=== PATIENT | male | born 1995 | race African-American/Black ===

== ENCOUNTER 2017-12-09 02:34 | Inpatient (IN) | payer OTHER ==
[~2017-12-09] VITALS: Ht 167.6 cm; Wt 57.9 kg
[2017-12-09 02:48] VITALS: BP 149/76; PULSE 81; RESP 18; O2SAT 100
[2017-12-09] MEDS ORDERED: HALOPERIDOL LACTATE 5 MG/ML AMP IM ONE (03:15)
[2017-12-09] MEDS ORDERED: LORazepam 2 MG/ML VIAL IM ONE (03:15)
--- NOTE | 2017-12-09 03:25 | PD ---
HPI Chief Complaint: Psychiatric Symptoms Time Seen by Provider: 03:04 Travel History International Travel<30 days: No Contact w/Intl Traveler<30days: No Traveled to known affect area: No History of Present Illness HPI 22-year-old black male presents emergency department under Stewart act by PD. Patient's mother had called police advising them that he has become increasingly [id number] and has been acting bizarre. Patient was placed under Stewart act to ensure his safety. The patient here is speaking incoherently. He is requesting marijuana and K2. He is uncooperative. He initially had attempted to elope when he was being brought in by PD for evaluation. Patient was placed in violent restraints to ensure his safety. Patient was medicated with Haldol 5 mg and Ativan 2 mg IM. There is no meaningful history through the patient. I have had a discussion with the patient's mother. She states that he had a similar episode back in 2014 when he was smoking marijuana and possibly K2. She states he became sober and then became a productive citizen going to school. Just recently the patient started to do marijuana and drugs again. He was arrested for having a concealed handgun. During his incarceration he has also ordered an officer and was placed in confinement. He is currently out on bail. [facility] Past Medical History Narrative Medical Substance-induced Tetanus Vaccination: < 5 Years ?: Not Past Surgical History Surgical History: No Previous Surgery Social History Alcohol Use: Yes Tobacco Use: Yes Substance Use: Yes (OCCASIONALLY PER FATHER) Allergies-Medications (Allergen,Severity, Reaction): Coded Allergies: No Known Allergies (Unverified , 01/18/15) Reported Meds & Prescriptions Reported Meds & Active Scripts Active No Active Prescriptions or Reported Medications Review of Systems ROS Limitations: Psychotic Physical Exam Narrative GENERAL: Well-nourished, well-developed patient. SKIN: Warm and dry. HEAD: Normocephalic and atraumatic. EYES: No scleral icterus. No injection or drainage. ENT: No nasal drainage noted. Mucous membranes pink. Airway patent. NECK: Supple, trachea midline. Moves head freely without obvious discomfort. CARDIOVASCULAR: Regular rate and rhythm without murmurs, gallops, or rubs. RESPIRATORY: Breath sounds equal bilaterally. No accessory muscle use. GASTROINTESTINAL: Abdomen soft, non-tender, nondistended. EXTREMITIES: No cyanosis or edema. BACK: Nontender without obvious deformity. No CVA tenderness. NEURO: Patient is alert and oriented. no sensorimotor deficits. Nonfocal. Normal speech. PSYCH: Patient is acutely psychotic and not making sense. Data Data Last Documented VS Vital Signs Date Time Temp Pulse Resp B/P (MAP) Pulse Ox O2 Delivery O2 Flow Rate FiO2 12/09/17 04:22 98.2 12/09/17 02:51 81 12/09/17 02:48 18 149/76 (100) 100 Orders Orders Complete Blood Count With Diff (12/09/17 03:04) Comprehensive Metabolic Panel (12/09/17 03:04) Thyroid Stimulating Hormone (12/09/17 03:04) Psych Screen (12/09/17 03:04) Haloperidol Inj (Haldol Inj) (12/09/17 03:15) Lorazepam Inj (Ativan Inj) (12/09/17 03:15) Restraints Violent (12/09/17 03:04) Drug Screen, Random Urine (12/09/17 03:04) Alcohol (Ethanol) (12/09/17 03:04) Salicylates (Aspirin) (12/09/17 03:04) Tylenol (Acetaminophen) (12/09/17 03:04) Labs Laboratory Tests Test 12/09/17 03:13 White Blood Count 5.0 TH/MM3 Red Blood Count 4.07 MIL/MM3 Hemoglobin 13.1 GM/DL Hematocrit 38.4 % Mean Corpuscular Volume 94.3 FL Mean Corpuscular Hemoglobin 32.3 PG Mean Corpuscular Hemoglobin Concent 34.3 % Red Cell Distribution Width 13.4 % Platelet Count 198 TH/MM3 Mean Platelet Volume 9.5 FL Neutrophils (%) (Auto) 38.3 % Lymphocytes (%) (Auto) 45.4 % Monocytes (%) (Auto) 9.7 % Eosinophils (%) (Auto) 5.8 % Basophils (%) (Auto) 0.8 % Neutrophils # (Auto) 1.9 TH/MM3 Lymphocytes # (Auto) 2.3 TH/MM3 Monocytes # (Auto) 0.5 TH/MM3 Eosinophils # (Auto) 0.3 TH/MM3 Basophils # (Auto) 0.0 TH/MM3 CBC Comment DIFF FINAL Differential Comment Blood Urea Nitrogen 17 MG/DL Creatinine 1.02 MG/DL Random Glucose 86 MG/DL Total Protein 7.1 GM/DL Albumin 3.7 GM/DL Calcium Level 8.2 MG/DL Alkaline Phosphatase 65 U/L Aspartate Amino Transf (AST/SGOT) 20 U/L Alanine Aminotransferase (ALT/SGPT) 18 U/L Total Bilirubin 0.3 MG/DL Sodium Level 143 MEQ/L Potassium Level 3.4 MEQ/L Chloride Level 106 MEQ/L Carbon Dioxide Level 28.0 MEQ/L Anion Gap 9 MEQ/L Estimat Glomerular Filtration Rate 112 ML/MIN Thyroid Stimulating Hormone 3rd Gen 2.440 uIU/ML Salicylates Level LESS THAN 1.7 MG/DL Urine Opiates Screen NEG Acetaminophen Level LESS THAN 2.0 MCG/ML Urine Barbiturates Screen NEG Urine Amphetamines Screen NEG Urine Benzodiazepines Screen NEG Urine Cocaine Screen NEG Urine Cannabinoids Screen POS Ethyl Alcohol Level LESS THAN 3 MG/DL MDM Medical Decision Making Medical Screen Exam Complete: Yes Emergency Medical Condition: Yes Medical Record Reviewed: Yes Interpretation(s) Laboratory Tests Test 12/09/17 03:13 White Blood Count 5.0 TH/MM3 Red Blood Count 4.07 MIL/MM3 Hemoglobin 13.1 GM/DL Hematocrit 38.4 % Mean Corpuscular Volume 94.3 FL Mean Corpuscular Hemoglobin 32.3 PG Mean Corpuscular Hemoglobin Concent 34.3 % Red Cell Distribution Width 13.4 % Platelet Count 198 TH/MM3 Mean Platelet Volume 9.5 FL Neutrophils (%) (Auto) 38.3 % Lymphocytes (%) (Auto) 45.4 % Monocytes (%) (Auto) 9.7 % Eosinophils (%) (Auto) 5.8 % Basophils (%) (Auto) 0.8 % Neutrophils # (Auto) 1.9 TH/MM3 Lymphocytes # (Auto) 2.3 TH/MM3 Monocytes # (Auto) 0.5 TH/MM3 Eosinophils # (Auto) 0.3 TH/MM3 Basophils # (Auto) 0.0 TH/MM3 CBC Comment DIFF FINAL Differential Comment Blood Urea Nitrogen 17 MG/DL Creatinine 1.02 MG/DL Random Glucose 86 MG/DL Total Protein 7.1 GM/DL Albumin 3.7 GM/DL Calcium Level 8.2 MG/DL Alkaline Phosphatase 65 U/L Aspartate Amino Transf (AST/SGOT) 20 U/L Alanine Aminotransferase (ALT/SGPT) 18 U/L Total Bilirubin 0.3 MG/DL Sodium Level 143 MEQ/L Potassium Level 3.4 MEQ/L Chloride Level 106 MEQ/L Carbon Dioxide Level 28.0 MEQ/L Anion Gap 9 MEQ/L Estimat Glomerular Filtration Rate 112 ML/MIN Thyroid Stimulating Hormone 3rd Gen 2.440 uIU/ML Salicylates Level LESS THAN 1.7 MG/DL Urine Opiates Screen NEG Acetaminophen Level LESS THAN 2.0 MCG/ML Urine Barbiturates Screen NEG Urine Amphetamines Screen NEG Urine Benzodiazepines Screen NEG Urine Cocaine Screen NEG Urine Cannabinoids Screen POS Ethyl Alcohol Level LESS THAN 3 MG/DL Differential Diagnosis MDM: High Differential diagnoses: Schizophrenia, schizoaffective disorder, bipolar, anxiety, depression, adjustment reaction, mood disorder NOS, ODD, depressive disorder NOS, dementia, dementia with agitation, psychosis NOS, substance induced mood disorder, infection,electrolyte abnormality, malingering. Narrative Course Mental health screening discussed with the patient. Psychiatric screen ordered. The patient has been medically cleared. The patient is taken out of restraints per protocol. Diagnosis Primary Impression: Medical clearance for psychiatric admission Scripts No Active Prescriptions or Reported Meds Condition: Stable Varun Colon December 09, 2017 03:25
[2017-12-09 03:33] LABS: AUTOMATED NEUTROPHIL # 1.9 TH/MM3 (1.8-7.7); BASOPHIL % 0.8 % (0.0-2.0); EOSINOPHIL # 0.3 TH/MM3 (0-0.4); EOSINOPHIL % 5.8 % (0.0-4.0); HEMATOCRIT 38.4 % (39.0-51.0); HEMOGLOBIN 13.1 GM/DL (13.0-17.0); LYMPH % 45.4 % (9.0-44.0); LYMPHOCYTE # 2.3 TH/MM3 (1.0-4.8); MEAN CELL VOLUME 94.3 FL (80.0-100.0); MEAN CORPUSCULAR HEMOGLOBIN 32.3 PG (27.0-34.0); MEAN CORPUSCULAR HGB CONC 34.3 % (32.0-36.0); MEAN PLATELET VOLUME 9.5 FL (7.0-11.0); MONO % 9.7 % (0.0-8.0); MONOCYTE # 0.5 TH/MM3 (0-0.9); NEUT % 38.3 % (16.0-70.0); PLATELET COUNT 198 TH/MM3 (150-450); RED BLOOD COUNT 4.07 MIL/MM3 (4.50-5.90); RED CELL DISTRIBUTION WIDTH 13.4 % (11.6-17.2)
[2017-12-09 03:51] LABS: ALBUMIN 3.7 GM/DL (3.4-5.0); ALT (GPT) 18 U/L (12-78); AST (GOT) 20 U/L (15-37); BLOOD UREA NITROGEN 17 MG/DL (7-18); CALCIUM 8.2 MG/DL (8.5-10.1); CHLORIDE 106 MEQ/L (98-107); CREATININE 1.02 MG/DL (0.60-1.30); GLOMERULAR FILTRATION RATE 112 ML/MIN (>89); GLUCOSE,RANDOM 86 MG/DL (74-106); SODIUM (NA) 143 MEQ/L (136-145)
[2017-12-09 04:01] LABS: ALKALINE PHOSPHATASE 65 U/L (45-117); TOTAL BILIRUBIN ADULT 0.3 MG/DL (0.2-1.0); TOTAL PROTEIN 7.1 GM/DL (6.4-8.2)
[2017-12-09 04:07] LABS: ACETAMINOPHEN LESS THAN 2.0 MCG/ML (10.0-30.0)
[2017-12-09 04:22] VITALS: TEMP 98.2
[2017-12-09 04:52] VITALS: BP 134/68; PULSE 58; RESP 13; TEMP 97.7; O2SAT 99
--- NOTE | 2017-12-09 11:21 | PD ---
History of Present Illness Chief Complaint: Psychiatric Symptoms Time Seen by Provider: 11:20 Travel History International Travel<30 Days: No Contact w/Intl Traveler<30days: No Known affected area: No Legal Status Legal Status: Stewart Act Stewart Act Signed By: Marcelo Laird History of Present Illness: History of Present Illness HPI 22-year-old black, single male with previous history of unspecified psychosis who presents emergency department under Stewart act by PD. Patient's mother had called police advising them that he has become increasingly [id number] and has been acting bizarre. Upon arrival to the ED the patient is described as" speaking incoherently. He is requesting marijuana and K2. He is uncooperative. He initially had attempted to elope when he was being brought in by PD for evaluation. Patient was placed in violent restraints to ensure his safety. Patient was medicated with Haldol 5 mg and Ativan 2 mg IM." There is no meaningful history through the patient. Patient is seen in Main ED. He is asleep, arousable with verbal intervention. Sitter is at bedside. The patient is vague with his answers. He is oddly related. Appears internally preoccupied although he denies hallucinations. He states he is here "because my parents called the police." He denies that he has used any substances except marijuana. I contacted his mother at [phone]. The mother tells me that the patient has not been acting like himself for the past 5 days. He has not been sleeping, has been walking in the street as well as walking in traffic, has been irritable , when he is around people he is afraid of people getting too close to him and touching him. She also reports that he cut his hair after he had been growing out his dreads and then he shaved his head. The family was concerned about his change in behavior and had him seen by a neurologist on Saturday who completed a CT scan with no positive findings. The mother does state that he was visited by a friend and they were smoking marijuana. The mother is concerned that due to his behavior he will be hurt by someone or that he may hurt someone else who gets close to him on accident while he is out of the home. It appears that the patient after he was seen here in 2014 he was followed up for several months at [facility] and was taken medication but that he stopped the medicine after several months. [facility] Past Medical History Tetanus Vaccination: < 5 Years ?: Not Past Surgical History Surgical History: No Previous Surgery Psychiatric History Psychiatric History Hx Psychiatric Treatment: 1 previous Stewart act in 2014. He was sent to [place]. Received treatment at [facility]. Currently not under psychiatric treatment. History of Inpatient Treatment: Yes Guns or firearms in home: No Social History Single, unemployed, living with parents. For possession of a gun as well as possession of marijuana. He was recently released from care home. Hx Alcohol Use: Yes Hx Tobacco Use: Yes Hx Substance Use: Yes (OCCASIONALLY PER FATHER) Substance Use Type: Marijuana Other Substances Used: Possibly K2 Hx of Substance Use Treatment: No Family Psychiatric History Negative Allergies-Medications (Allergen,Severity, Reaction): Coded Allergies: No Known Allergies (Unverified , 01/18/15) Reported Meds & Prescriptions Reported Meds & Active Scripts Active No Active Prescriptions or Reported Medications Review of Systems ROS Limitations: Uncooperative Mental Status Examination Appearance: Appropriate Consciousness: Alert Orientation: x4 Motor Activity: Normal gait Speech: Hesitant, Slow Language: Adequate Fund of Knowledge: Adequate Attention and Concentration: Inadequate Memory: Unremarkable (Poor historian) Mood: Appropriate Affect: Blunt Thought Process & Associations: Other (Diminished) Thought Content: Bizarre thinking (Believes people are trying to get close to him for unknown reasons) Hallucination Type: None Delusion Type: Other (Suspicious of other people) Suicidal Ideation: No Suicidal Plan: No Suicidal Intention: No Homicidal Ideation: No Homicidal Plan: No Homicidal Intention: No Insight: Poor Judgment: Impulsive MDM Medical Decision Making Medical Record Reviewed: Yes Assessment/Plan 22-year-old male with previous history of unspecified psychosis, substance use disorder, who presents under a Stewart act after family called the police and reported that he has been walking in the street, walking onto traffic, agitated , not sleeping for the past 5 days, talking a lot, afraid of being out in public and having people touch him. The mother has concerns for his safety as well as the safety of others if he were to be discharged. At this time the patient meets criteria to remain under the Stewart act for further evaluation. There are currently no available beds on [facility] for this patient therefore it is recommended that staff contact the [facility] for possible admission. He will also be able to receive substance abuse treatment while there. Orders Orders Complete Blood Count With Diff (12/09/17 03:04) Comprehensive Metabolic Panel (12/09/17 03:04) Thyroid Stimulating Hormone (12/09/17 03:04) Psych Screen (12/09/17 03:04) Haloperidol Inj (Haldol Inj) (12/09/17 03:15) Lorazepam Inj (Ativan Inj) (12/09/17 03:15) Restraints Violent (12/09/17 03:04) Drug Screen, Random Urine (12/09/17 03:04) Alcohol (Ethanol) (12/09/17 03:04) Salicylates (Aspirin) (12/09/17 03:04) Tylenol (Acetaminophen) (12/09/17 03:04) Diet Regular Basic (12/09/17 Breakfast) Diet Regular Basic (12/09/17 Lunch) Results Vital Signs Date Time Temp Pulse Resp B/P (MAP) Pulse Ox O2 Delivery O2 Flow Rate FiO2 12/09/17 04:52 97.7 58 13 134/68 (90) 99 Room Air 12/09/17 04:22 98.2 12/09/17 02:51 81 12/09/17 02:48 81 18 149/76 (100) 100 Laboratory Tests Test 12/09/17 03:13 White Blood Count 5.0 Red Blood Count 4.07 Hemoglobin 13.1 Hematocrit 38.4 Mean Corpuscular Volume 94.3 Mean Corpuscular Hemoglobin 32.3 Mean Corpuscular Hemoglobin Concent 34.3 Red Cell Distribution Width 13.4 Platelet Count 198 Mean Platelet Volume 9.5 Neutrophils (%) (Auto) 38.3 Lymphocytes (%) (Auto) 45.4 Monocytes (%) (Auto) 9.7 Eosinophils (%) (Auto) 5.8 Basophils (%) (Auto) 0.8 Neutrophils # (Auto) 1.9 Lymphocytes # (Auto) 2.3 Monocytes # (Auto) 0.5 Eosinophils # (Auto) 0.3 Basophils # (Auto) 0.0 CBC Comment DIFF FINAL Differential Comment Blood Urea Nitrogen 17 Creatinine 1.02 Random Glucose 86 Total Protein 7.1 Albumin 3.7 Calcium Level 8.2 Alkaline Phosphatase 65 Aspartate Amino Transf (AST/SGOT) 20 Alanine Aminotransferase (ALT/SGPT) 18 Total Bilirubin 0.3 Sodium Level 143 Potassium Level 3.4 Chloride Level 106 Carbon Dioxide Level 28.0 Anion Gap 9 Estimat Glomerular Filtration Rate 112 Thyroid Stimulating Hormone 3rd Gen 2.440 Salicylates Level LESS THAN 1.7 Urine Opiates Screen NEG Acetaminophen Level LESS THAN 2.0 Urine Barbiturates Screen NEG Urine Amphetamines Screen NEG Urine Benzodiazepines Screen NEG Urine Cocaine Screen NEG Urine Cannabinoids Screen POS Ethyl Alcohol Level LESS THAN 3 Diagnosis Primary Impression: Medical clearance for psychiatric admission Additional Impressions: Substance abuse Synthetic cannabinoid-induced disorder Prescriptions No Active Prescriptions or Reported Meds Condition: Stable Problem Qualifiers Brianne Pina December 09, 2017 11:21
[2017-12-10 05:26] VITALS: BP 110/51; PULSE 55; RESP 16; O2SAT 98
[2017-12-10] MEDS ORDERED: ALUMINUM/MAGNESIUM/SIMETH 30 ML CUP PO PRN (16:00)
[2017-12-10] MEDS ORDERED: ACETAMINOPHEN 325 MG TAB PO PRN (16:00)
[2017-12-10] MEDS ORDERED: MAGNESIUM HYDROXIDE SUSP 30 ML CUP PO PRN (16:00)
[2017-12-10 18:00] VITALS: BP 135/80; PULSE 85; RESP 20; O2SAT 98
[2017-12-10 18:50] VITALS: BP 159/85; PULSE 83; RESP 16; TEMP 98.7; O2SAT 100
[2017-12-11 06:40] VITALS: BP 126/58; PULSE 78; RESP 16; TEMP 97.8; O2SAT 99
[2017-12-11 09:25] LABS: BICARBONATE 29.2 MEQ/L (21.0-32.0); BLOOD UREA NITROGEN 11 MG/DL (7-18); CHLORIDE 102 MEQ/L (98-107); CHOLESTEROL 145 MG/DL (120-200); CHOLESTEROL/ HDL RATIO 2.69 RATIO; GLOMERULAR FILTRATION RATE 148 ML/MIN (>89); GLUCOSE,RANDOM 78 MG/DL (74-106); HDL CHOLESTEROL 53.8 MG/DL (40.0-60.0); LDL CHOLESTEROL 87 MG/DL (0-99); SODIUM (NA) 140 MEQ/L (136-145); TRIGLYCERIDES 23 MG/DL (42-150)
[2017-12-11] MEDS ORDERED: hydrOXYzine HCL 50 MG TAB PO PRN (13:15)
[2017-12-11] MEDS ORDERED: diphenhydrAMINE HCL 50 MG CAP PO PRN (13:15)
--- NOTE | 2017-12-11 13:35 | HHI.HP ---
Provisional Diagnosis Admission Date December 10, 2017 at 16:03 Ad[place]us I. Bipolar disorder most recent episode haleigh Certification of Person's Competence To Provide Express and Informed Consent I have personally examined Emelia GarciaJr , a person being served at [facility] on, December 11, 2017 13:14. Express and informed consent means consent voluntarily given in writing, by a competent person, after sufficient explanation and disclosure of the subject matter involved to enable the person to make a knowing and willful decision without any element of force, fraud, deceit, duress, or other form of constraint or coercion. This person is 18 years of age or older, is not now known to be incompetent to consent to treatment with a guardian advocate, and does not have a health care surrogate or proxy currently making medical treatment decisions. I have found this person to be one of the following: [] Competent to provide express and informed consent, as defined above, for voluntary admission to this facility and is competent to provide express and informed consent for treatment. He/she has the consistent capacity to make well reasoned, willful, and knowing decisions concerning his or her medical or mental health treatment. The person fully and consistently understands the purpose of the admission for examination/placement and is fully capable of personally exercising all rights assured [place] [] Incompetent to provide express and informed consent to voluntary admission, and this is incompetent to provide express and informed consent to treatment. The person must be transferred to involuntary status and a petition for a guardian advocate filed with the Circuit Court. [xxx] Refusing to provide express and informed consent to voluntary admission but is competent to provide express and informed consent for treatment. The person must be discharged or transferred to involuntary status. Form shall be completed within 24 hours of a person's arrival at the receiving facility and filed in the clinical record of each person: 1. Admitted on a voluntary basis 2. Permitted to provide express and informed consent to his/her own treatment 3. Allowed to transfer from involuntary to voluntary status 4. Prior to permitting a person to consent to his or her own treatment after having been previously found incompetent to consent to treatment. History of Present Illness Capacity: Lacks Capacity (Patient lacks capacity to sign for admission, patient has capacity to sign for medication) HPI Patient is a 22-year-old -[place] male Stewart acted here by police after being called by his mother. It appears patient was trying significant signs of haleigh with rapid pressured speech markedly grandiose somewhat bizarre statements and behaviors. Patient has a past history of marijuana and K2 abuse , he has had prior hospitalization for similar behaviors in the past. Of interest patient sitting quietly in his room with nurse Neeru. He also gives a history of pain incarcerated for a few months for drug charges being released just recently. He states while in custodial he was on the mental health unit what appears to have been manic behaviors. He was then hospitalized for 3 days and local CSU. At discharge she is on no medication at this time. Prior to my seeing patient he was noted to be bouncing and dancing in the hallway holding a hair brush in seeing him to it using it is like a microphone talk to people. However when talking with me the patient was calm and cooperative speech had normal rate and rhythm to affect showed good range and intensity. He did reluctantly acknowledge that he been diagnosed bipolar in the past though he denies it. He denies any recent substance use. Except for marijuana and he states he used prior to this admission. He lives with his mother and father. Patient does acknowledge frequent use of marijuana. He is vague about K2. He denies other drug use. Says alcohol is rarely used. He does deny suicidality homicidality voices or visions. As mentioned he is showing no significant signs of haleigh with me. He says he graduated high school and is taking some courses in [employer] it a local college in [place]. The stomach feel patient meets criteria for further observation and assessment we will watch him of the unit over 24 hours and observe his behavior. We will keep him as drug free as possible during this time we will refrain from any opiates or benzodiazepines only allow him a small amount of Atarax. Review of Systems Except as stated in HPI: all other systems reviewed are Neg Past Psych History Psychological trauma history Patient denies Violence risk - others (6 mos) Low Violence risk - self (6 mos) Low Substance Abuse History Drugs/Alcohol past 12 months Patient states frequent use of marijuana Past Family Social History Coded Allergies: No Known Allergies (Unverified , 01/18/15) No Active Prescriptions or Reported Meds Current Medications Medications (Trade) Dose Ordered Sig/Pablo Route Start Time Stop Time Status Last Admin (Tylenol) 650 mg Q4H PRN PO 12/10/17 16:00 (Milk Of Magnesia Liq) 30 ml DAILY PRN PO 12/10/17 16:00 (Mag-Al Plus Susp Liq) 30 ml Q6H PRN PO 12/10/17 16:00 Family Psych History Patient states depression and family Social History Patient is single and lives with family Patient's Strengths (min. 2) Patient verbal able access healthcare Physical Exam Patient medically cleared ED at the present time patient sitting quietly in his room he is in no acute distress, he is in no respiratory distress, no complaints of abdominal pain, patient moving all 4 extremities without difficulty. No abnormal motor movements noted Vital Signs Vital Signs Date Time Temp Pulse Resp B/P (MAP) Pulse Ox O2 Delivery O2 Flow Rate FiO2 12/11/17 06:40 97.8 78 16 126/58 (80) 99 12/10/17 18:00 Room Air Lab Results Test 12/11/17 07:13 Blood Urea Nitrogen 11 MG/DL Creatinine 0.80 MG/DL Random Glucose 78 MG/DL Calcium Level 9.0 MG/DL Sodium Level 140 MEQ/L Potassium Level 3.5 MEQ/L Chloride Level 102 MEQ/L Carbon Dioxide Level 29.2 MEQ/L Anion Gap 9 MEQ/L Estimat Glomerular Filtration Rate 148 ML/MIN Triglycerides Level 23 MG/DL Cholesterol Level 145 MG/DL LDL Cholesterol 87 MG/DL HDL Cholesterol 53.8 MG/DL Cholesterol/HDL Ratio 2.69 RATIO Mental Status Examination Appearance: Appropriate Consciousness: Alert Orientation: x4 Motor Activity: Normal gait Speech: Unremarkable, Rapid (Somewhat) Language: Adequate Fund of Knowledge: Adequate Attention and Concentration: Inadequate (Fair) Memory: Unremarkable (Poor historian) Mood: Appropriate Affect: Other (Good range and intensity) Thought Process & Associations: Intact Thought Content: Bizarre thinking (Improving) Hallucination Type: None Suicidal Ideation: No Suicidal Plan: No Suicidal Intention: No Homicidal Ideation: No Homicidal Plan: No Homicidal Intention: No Insight: Fair Judgment: Impulsive Assessment & Plan Problem List: (1) Bipolar disorder, most recent episode manic ICD Codes: F31.10 - Bipolar disorder, current episode manic without psychotic features, unspecified Assessment & Plan Estimated LOS: days patient continues to show signs of haleigh though it appears to be improving. There is some possibility that he may have done some K2 besides marijuana that may also explain some of his behaviors will continue to watch over the next 24 hours Discharge Planning At this time patient would decompensate a place to a lower level of care Request HC Surrog/Guard Advoc?: No Nawaf Alejandro MD December 11, 2017 13:35
[2017-12-11 15:56] LABS: HEMOGLOBIN A1C 5.3 % (4.3-6.0)
[2017-12-11 18:20] VITALS: BP 128/71; PULSE 94; RESP 18; TEMP 97.4; O2SAT 100
[2017-12-12 06:36] VITALS: BP 128/70; PULSE 65; RESP 16; TEMP 97.8; O2SAT 97
--- NOTE | 2017-12-12 09:14 | HHI.DS ---
Psychiatry Discharge Summary Inpatient Psychiatric care?: Yes Advance Directive: No Reason Not Provided: not interested Mental Health AdvanceDirective: No Health Care Proxy: No Admission Admission Date December 10, 2017 at 16:03 Admission Diagnosis: (1) Bipolar disorder, most recent episode manic ICD Code: F31.10 - Bipolar disorder, current episode manic without psychotic features, unspecified Brief History Patient is a 22-year-old -[place] male Stewart acted here by police after being called by his mother. It appears patient was trying significant signs of haleigh with rapid pressured speech markedly grandiose somewhat bizarre statements and behaviors. Patient has a past history of marijuana and K2 abuse , he has had prior hospitalization for similar behaviors in the past. Of interest patient sitting quietly in his room with nurse Neeru. He also gives a history of pain incarcerated for a few months for drug charges being released just recently. He states while in penitentiary he was on the mental health unit what appears to have been manic behaviors. He was then hospitalized for 3 days and local [facility]. At discharge she is on no medication at this time. Prior to my seeing patient he was noted to be bouncing and dancing in the hallway holding a hair brush in seeing him to it using it is like a microphone talk to people. However when talking with me the patient was calm and cooperative speech had normal rate and rhythm to affect showed good range and intensity. He did reluctantly acknowledge that he been diagnosed bipolar in the past though he denies it. He denies any recent substance use. Except for marijuana and he states he used prior to this admission. He lives with his mother and father. Patient does acknowledge frequent use of marijuana. He is vague about K2. He denies other drug use. Says alcohol is rarely used. He does deny suicidality homicidality voices or visions. As mentioned he is showing no significant signs of haleigh with me. 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 The stomach feel patient meets criteria for further observation and assessment we will watch him of the unit over 24 hours and observe his behavior. We will keep him as drug free as possible during this time we will refrain from any opiates or benzodiazepines only allow him a small amount of Atarax. Tobacco Use In Past 30 Days: 5 or More Cigarettes/Day Alcohol Use: 2-4 Times Per Month Hospital Course Patient of course was uneventful, patient showed good control over his mood and affect. While there is some mild increased intensity of his affect the range was within normal limits. His speech rate and rhythm were within normal limits there is no signs of racing thoughts or rapid pressured speech. He denied suicidality and homicidality voices or visions. He does have a place to go home to. He still minimizes his his mood variabilities. However at the present time he does not meet Stewart act criteria. He does wish to be discharged. Less I will lift Stewart act patient to be discharged to himself, no Rx by me, we will make a referral to [facility] for further assessment at his discretion he also advised him as to signs and symptoms of increased manic/depressive behaviors, and the ability return to our ED for psychiatric screening if indicated Results Blood Pressure 128 / 70 Vital Signs Date Time Temp Pulse Resp B/P (MAP) Pulse Ox O2 Delivery O2 Flow Rate FiO2 12/12/17 06:36 97.8 65 16 128/70 (89) 97 12/10/17 18:00 Room Air Laboratory Tests Test 12/11/17 07:13 Triglycerides Level 23 MG/DL (42-150) Laboratory Results Test 12/11/17 07:13 Cholesterol Level 145 MG/DL (120-200) HDL Cholesterol 53.8 MG/DL (40.0-60.0) Hemoglobin A1c 5.3 % (4.3-6.0) LDL Cholesterol 87 MG/DL (0-99) Triglycerides Level 23 MG/DL (42-150) Summary of Procedures None done Pending results at discharge: No Medications # of Antipsychotic meds at D/C: 0 Approp Antipsych med options 1 - Minimum of three failed multiple trials of monotherapy. 2 - Documented plan to taper to monotherapy due to previous use of multiple meds OR cross-taper in progress at D/C. 3 - Documentation of augmentation of Clozapine. 4 - Justification other than those listed in allowable values 1-3, document here : Discharge Discharge Date: December 12, 2017 Discharge Diagnosis: (1) Bipolar disorder, most recent episode manic Diagnosis: Principal ICD Code: F31.10 - Bipolar disorder, current episode manic without psychotic features, unspecified Pt Condition on Discharge: Stable Discharge Disposition: Discharge Home Discharge Instructions Diet Instructions: As Tolerated, No Restrictions Activities you can perform: Regular-No Restrictions Scheduled Appointment: [facility] Discharge Time > 30 minutes Mental Status Examination Appearance: Appropriate Consciousness: Alert Orientation: x4 Motor Activity: Normal gait Speech: Unremarkable, Rapid (Somewhat) Language: Adequate Fund of Knowledge: Adequate Attention and Concentration: Inadequate (Fair) Memory: Unremarkable (Poor historian) Mood: Appropriate Affect: Other (Good range and intensity) Thought Process & Associations: Intact Thought Content: Bizarre thinking (Improving) Hallucination Type: None Suicidal Ideation: No Suicidal Plan: No Suicidal Intention: No Homicidal Ideation: No Homicidal Plan: No Homicidal Intention: No Insight: Fair Judgment: Impulsive Discharge/Advance Care Plan Health Problems: (1) Bipolar disorder, most recent episode manic Goals to promote your health * To prevent worsening of your condition and complications * To maintain your health at the optimal level Directions to meet your goals Take your medications as prescribed Follow your dietary instruction Follow activity as directed Keep your appointments as scheduled Take your immunizations and boosters as scheduled If your symptoms worsen call your PCP, if no PCP go to Urgent Care Center or Emergency Room For / questions related to your inpatient stay or results of tests pending at discharge, please contact Dr. Nawaf Alejandro at Smoking is Dangerous to Your Health. Avoid second hand smoking Nawaf Alejandro MD December 12, 2017 09:14
== END 2017-12-12 19:00 | disposition home or self-care (01) | DRG 885 ==
LOC: NEPD 02:34 → NEDA 12-10 16:03 → H260 12-10 18:51
PROVIDERS: ADMIT Psychiatry & Neurology Psychiatry; ATTEND Psychiatry & Neurology Psychiatry
DX: F31.10 Bipolar disorder, current episode manic without psychotic features, unspecified (principal); F12.90 Cannabis use, unspecified, uncomplicated
CPT/HCPCS: 80048; 80053; 80061; 80307; 83036; 84443; 85025; 99285; J1630; J2060